=== PATIENT | male | born 1980 | race Caucasian/White ===

== ENCOUNTER 2022-07-17 08:15 | Emergency (ER) | payer MEDICAID, OTHER ==
[~2022-07-17] VITALS: Ht 185.4 cm; Wt 84.0 kg
[2022-07-17 08:23] VITALS: BP 126/98
[2022-07-17] MEDS ORDERED: ACETAMINOPHEN 325MG TABLET PO ONE (08:45)
[2022-07-17] MEDS ORDERED: IBUPROFEN 400MG TABLET PO ONE (08:45)
[2022-07-17] MEDS ORDERED: IBUP-2028 MT (12:06)
[2022-07-17] MEDS ORDERED: TOPUD PO (12:06)
[2022-07-17] MEDS ORDERED: AMOX-494 MT (12:06)
[2022-07-17] MEDS ORDERED: DEXAMETHASONE 4MG TABLET PO ONE (12:15)
[2022-07-17] MEDS ORDERED: AMOXICILLIN 500 MG CAPSULE PO ONE (12:15)
== END 2022-07-17 12:13 | disposition home or self-care (01) ==
LOC: ER 08:15
DX: J02.0 Streptococcal pharyngitis (principal); F31.9 Bipolar disorder, unspecified; F20.9 Schizophrenia, unspecified; Z20.822 Contact with and (suspected) exposure to COVID-19; Z86.16 Personal history of COVID-19
CPT/HCPCS: 87426; 87430; 99283; C9803; J8540